=== PATIENT | male | born 1980 | race Caucasian/White ===

== ENCOUNTER → 2019-12-26 | Outpatient (CLI) | payer OTHER ==
--- NOTE | 2019-12-26 16:45 | Diagnostic Imaging Report ---
INDICATION: Bulge in the anterior abdominal wall. FINDINGS: Ultrasound of the area in question in the anterior abdominal wall was performed. No cystic or solid lesion is seen. There is no definitive hernia. IMPRESSION: Normal limited abdominal sonography in the area in question. Consider CT for more complete evaluation if clinically warranted. Dictated by: Dictated on workstation # [id number]
== END ==
LOC: RAD 16:07
PROVIDERS: ATTEND Nurse Practitioner Family
DX: R19.00 Intra-abdominal and pelvic swelling, mass and lump, unspecified site (principal)
CPT/HCPCS: 76705

== ENCOUNTER 2022-03-09 17:15 | Emergency (ER) | payer SELFPAY ==
[~2022-03-09] VITALS: Ht 177.8 cm; Wt 95.3 kg
[2022-03-09] MEDS ORDERED: cefTRIAXone 1 GM PRE-MIX 50 ML IV STA ×2 (17:34→18:14)
[2022-03-09] MEDS ORDERED: CYCLOBENZAPRINE 10 MG (FLEXERIL) TAB PO STA (17:36)
[2022-03-09] MEDS ORDERED: fentaNYL INJ 100 MCG/2 ML AMP IVP STA (17:37)
--- NOTE | 2022-03-09 17:38 | ED GU-Male ---
General Chief Complaint: - Reproductive Stated Complaint: LEFT TESTICLE PAIN - UTI Nursing Triage Note: PT AMBULATORY TO ROOM. PT SENT TO ER FROM URGENT CARE. PER UC REPORT PT RECEIVED 60MG TORADOL IM, ZOFRAN IV, 1000ML NS, AND TYLENOL FOR FEVER. PT REPORTS FEELING SICK TUESDAY, HAVING UTI SYMPTOMS TUESDAY, AND TOOK SOME ANTIBIOTICS THAT HE HAD AT HOME ON TUESDAY. PT STATES HE FELT PRETTY GOOD YESTERDAY, BUT NOTICED SOME LEFT TESTICLE SWELLING LAST NIGHT. PT REPORTS EXTREME PAIN IN LEFT TESTICLE TODAY AND FIRMNESS Source: patient Exam Limitations: no limitations History of Present Illness Date Seen by Provider: Mar 09, 2022 Time Seen by Provider: 17:38 Initial Comments Patient is a 41-year-old male who presents ED with pain with urination, left testicle or swelling and redness. Patient states he returned from a trip last Tuesday. States he spent most of the vacation drinking alcohol and having sexual intercourse with his significant other. Patient started having fever and urinary symptoms with burning urination and frequent urination. Patient states he did not feel well over the weekend. He took some leftover antibiotics which she cannot recall the name over the weekend and felt somewhat better on Tuesday. Started having pain to the left testicle last night woke up with worsening pain and redness throughout the day. States he is continue having pain with urination. Went to [facility] and had elevated white blood count with u rinary tract infection. Not concern for sexual transmitted infection. Reports worsening pain and swelling. Denies of any penile lesions, penile discharge, Peter pain, nausea, headache or dizziness. Patient did vomit 1 time while coming to the ER. Denies history of similar symptoms. Denies chest pain, cough, sore throat, headache, dizziness. patient in mild distress Allergies and Home Medications Allergies Coded Allergies: diphenhydramine (Verified Allergy, Unknown, 03/09/22) Patient Home Medication List Home Medication List Reviewed: Yes Hydrocodone/Acetaminophen (Hydrocodone-Acetamin 5-325 mg) 5 Mg-325 Mg Tablet, 1 TAB PO Q4H PRN for PAIN-MODERATE (5-7) Prescribed by: BC SINGLETON on 03/09/221922 Levofloxacin (Levofloxacin) 500 Mg Tablet, 500 MG PO DAILY Prescribed by: BC SINGLETON on 03/09/221922 Review of Systems Review of Systems Constitutional: No chills, No diaphoresis; malaise, weakness EENTM: No blurred vision, No double vision Respiratory: No cough, No dyspnea on exertion Cardiovascular: No chest pain Gastrointestinal: No abdominal pain, No diarrhea, No nausea Genitourinary: burning, frequency, hematuria, other (Left testicle or pain) Musculoskeletal: No back pain, No joint pain Skin: No change in color All Other Systemes Reviewed Negative Unless Noted: Yes Physical Exam Vital Signs Vital Signs - First Documented 03/09/22 17:22 Temp 36.6 Pulse 112 Resp 20 B/P (MAP) 150/84 (106) Pulse Ox 95 Capillary Refill : Height, Weight, BMI Height: '" Weight: lbs. oz. kg; 30.00 BMI Method: General Appearance: WD/WN, no apparent distress HEENT: PERRL/EOMI, normal ENT inspection, TMs normal, pharynx normal Neck: non-tender, full range of motion, supple, normal inspection Cardiovascular: regular rate, rhythm, no edema, no gallop, no JVD Respiratory: chest non-tender, lungs clear, normal breath sounds Gastrointestinal: normal bowel sounds, non tender, soft Genital/Rectal: tenderness (Left testicle or swelling in redness. Tenderness to palpate no inguinal lymphadenopathy. 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, no motor/sensory deficits, alert, normal mood/affect, oriented x 3 Skin: normal color, warm/dry Focused Exam Lactate Level 03/09/22 17:54: Lactic Acid Level 0.99 Lactic Acid Level Laboratory Tests Test 03/09/22 17:54 Lactic Acid Level 0.99 MMOL/L (0.50-2.00) Progress/Results/Core Measures Suspected Sepsis SIRS Temperature: Pulse: 112 Respiratory Rate: 20 Laboratory Tests 03/09/22 17:54: White Blood Count 20.3H Blood Pressure 150 /84 Mean: 106 03/09/22 17:54: Lactic Acid Level 0.99 Laboratory Tests 03/09/22 17:54: Creatinine 0.93, Platelet Count 310, Total Bilirubin 0.7 Results/Orders Lab Results Laboratory Tests Test 03/09/22 17:54 03/09/22 18:53 Range/Units White Blood Count 20.3 H 4.3-11.0 10^3/uL Red Blood Count 5.12 4.30-5.52 10^6/uL Hemoglobin 14.3 13.3-17.7 g/dL Hematocrit 44 40-54 % Mean Corpuscular Volume 85 80-99 fL Mean Corpuscular Hemoglobin 28 25-34 pg Mean Corpuscular Hemoglobin Concent 33 32-36 g/dL Red Cell Distribution Width 13.3 10.0-14.5 % Platelet Count 310 130-400 10^3/uL Mean Platelet Volume 9.8 9.0-12.2 fL Immature Granulocyte % (Auto) 1 % Neutrophils (%) (Auto) 83 H 42-75 % Lymphocytes (%) (Auto) 6 L 12-44 % Monocytes (%) (Auto) 9 0-12 % Eosinophils (%) (Auto) 2 0-10 % Basophils (%) (Auto) 0 0-10 % Neutrophils # (Auto) 16.9 H 1.8-7.8 10^3/uL Lymphocytes # (Auto) 1.1 1.0-4.0 10^3/uL Monocytes # (Auto) 1.8 H 0.0-1.0 10^3/uL Eosinophils # (Auto) 0.4 H 0.0-0.3 10^3/uL Basophils # (Auto) 0.1 0.0-0.1 10^3/uL Immature Granulocyte # (Auto) 0.1 0.0-0.1 10^3/uL Neutrophils % (Manual) 84 % Lymphocytes % (Manual) 8 % Monocytes % (Manual) 6 % Eosinophils % (Manual) 2 % Blood Morphology Comment NORMAL Sodium Level 134 L 135-145 MMOL/L Potassium Level 3.5 L 3.6-5.0 MMOL/L Chloride Level 99 98-107 MMOL/L Carbon Dioxide Level 23 21-32 MMOL/L Anion Gap 12 5-14 MMOL/L Blood Urea Nitrogen 14 7-18 MG/DL Creatinine 0.93 0.60-1.30 MG/DL Estimat Glomerular Filtration Rate 105 BUN/Creatinine Ratio 15 Glucose Level 99 70-105 MG/DL Lactic Acid Level 0.99 0.50-2.00 MMOL/L Calcium Level 8.5 8.5-10.1 MG/DL Corrected Calcium 8.6 8.5-10.1 MG/DL Total Bilirubin 0.7 0.1-1.0 MG/DL Aspartate Amino Transf (AST/SGOT) 15 5-34 U/L Alanine Aminotransferase (ALT/SGPT) 25 0-55 U/L Alkaline Phosphatase 49 40-136 U/L C-Reactive Protein High Sensitivity 8.30 H 0.00-0.50 MG/DL Total Protein 6.8 6.4-8.2 GM/DL Albumin 3.9 3.2-4.5 GM/DL Urine Color YELLOW Urine Clarity CLEAR Urine pH 6.0 5-9 Urine Specific Stickney 1.015 L 1.016-1.022 Urine Protein 1+ H NEGATIVE Urine Glucose (UA) NEGATIVE NEGATIVE Urine Ketones 2+ H NEGATIVE Urine Nitrite NEGATIVE NEGATIVE Urine Bilirubin NEGATIVE NEGATIVE Urine Urobilinogen 1.0 < = 1.0 MG/DL Urine Leukocyte Esterase 2+ H NEGATIVE Urine RBC (Auto) 3+ H NEGATIVE Urine RBC 2-5 H /HPF Urine WBC 25-50 H /HPF Urine Squamous Epithelial Cells NONE /HPF Urine Renal Epithelial Cells NONE /HPF Urine Crystals NONE /LPF Urine Bacteria NEGATIVE /HPF Urine Casts NONE /LPF Urine Mucus NEGATIVE /LPF Urine Culture Indicated NO My Orders Orders - RAVINDRA POSADA Urinalysis (03/09/22 17:23) Us Scrotum (Testicle) [id number] (03/09/22 17:23) Cbc With Automated Diff (03/09/22 17:34) Comprehensive Metabolic Panel (03/09/22 17:34) Hs C Reactive Protein (03/09/22 17:34) Blood Culture (03/09/22 17:34) Lactic Acid Analyzer (03/09/22 17:34) Ceftriaxone 1 Gm Pre-Mix (Rocephin 1 Gm (03/09/22 17:34) Cyclobenzaprine Tablet (Flexeril Tablet) (03/09/22 17:36) Fentanyl Inj (Sublimaze Injection) (03/09/22 17:37) Neis Colten Dna Urine Test (03/09/22 17:39) Chlamydia Trachomatis Urine (03/09/22 17:39) Manual Differential (03/09/22 17:54) Blood Culture (03/09/22 18:09) Ceftriaxone 1 Gm Pre-Mix (Rocephin 1 Gm (03/09/22 18:14) Ns Iv 1000 Ml (Sodium Chloride 0.9%) (03/09/22 18:22) Rx-Hydrocodone/Apap 5-325 Mg (Rx-Vicodin (03/09/22 19:45) Medications Given in ED Current Medications Medications Dose Ordered Sig/Julio C Route Start Time Stop Time Status Last Admin Dose Admin Acetaminophen/ Hydrocodone Bitart 1 ea ONCE ONCE PO 03/09/22 19:45 03/09/22 19:46 DC 03/09/22 19:49 1 EA Vital Signs/I&O 03/09/22 17:22 Temp 36.6 Pulse 112 Resp 20 B/P (MAP) 150/84 (106) Pulse Ox 95 Capillary Refill : Blood Pressure Mean: 106 Departure Communication (PCP) Ultrasound shows epididymitis and orchitis noted to the left scrotum. Elevated white blood count was tachycardic. Was given a dose of Rocephin. Urinalysis positive for UTI. Not concern for sexual transmitted infections and currently sexually active with 1 partner. Concerning for more enteric however cultures are currently pending. Patient was given dose of IV pain medication. Ultrasound was negative for testicle or torsion, abscess. Patient Was given a liter of fluid. Pain improved. Will discharge with Levaquin 500 mg daily for 10 days for the epididymitis. Discussed taking probiotics. Will discharge with pain medication. recommend recheck with his primary care physician in 2 to 3 days for reevaluation. If any worsening symptoms return back to ED for further evaluation Impression Primary Impression: Epididymitis Additional Impression: Orchitis Disposition: 01 HOME, SELF-CARE Condition: Stable Departure-Patient Inst. Decision time for Depature: 19:21 Referrals: [facility]/JUAN GABRIEL MD Patient Instructions: Epididymitis (DC) Scripts Hydrocodone/Acetaminophen (Hydrocodone-Acetamin 5-325 mg) 5 Mg-325 Mg Tablet 1 TAB PO Q4H PRN for PAIN-MODERATE (5-7), #8 TAB Prov: RAVINDRA POSADA 03/09/22 Levofloxacin (Levofloxacin) 500 Mg Tablet 500 MG PO DAILY for 10 Days, #10 TAB Prov: RAVINDRA POSADA 03/09/22 Work/School Note: Work Release Form Date Seen in the Emergency Department: Mar 09, 2022 Return to Work: Mar 12, 2022 RAVINDRA POSADA Mar 09, 2022 17:38
[2022-03-09 18:04] LABS: BASOPHILS # (AUTO) 0.1 10^3/uL (0.0-0.1); BASOPHILS % (AUTO) 0 % (0-10); EOSINOPHILS # (AUTO) 0.4 10^3/uL (0.0-0.3); EOSINOPHILS % (AUTO) 2 % (0-10); HEMATOCRIT 44 % (40-54); HEMOGLOBIN 14.3 g/dL (13.3-17.7); LYMPHOCYTES # (AUTO) 1.1 10^3/uL (1.0-4.0); LYMPHOCYTES % (AUTO) 6 % (12-44); MEAN CORPUSCULAR HEMOGLOBIN 28 pg (25-34); MEAN CORPUSCULAR HGB CONC 33 g/dL (32-36); MEAN CORPUSCULAR VOLUME 85 fL (80-99); MEAN PLATELET VOLUME 9.8 fL (9.0-12.2); MONOCYTES # (AUTO) 1.8 10^3/uL (0.0-1.0); MONOCYTES % (AUTO) 9 % (0-12); NEUTROPHILS # (AUTO) 16.9 10^3/uL (1.8-7.8); NEUTROPHILS % (AUTO) 83 % (42-75); PLATELET COUNT 310 10^3/uL (130-400); WHITE BLOOD COUNT 20.3 10^3/uL (4.3-11.0)
[2022-03-09 18:12] LABS: ALBUMIN 3.9 GM/DL (3.2-4.5); POTASSIUM 3.5 MMOL/L (3.6-5.0)
[2022-03-09 18:13] LABS: CALCIUM 8.5 MG/DL (8.5-10.1)
[2022-03-09 18:15] LABS: TOTAL PROTEIN 6.8 GM/DL (6.4-8.2)
[2022-03-09 18:16] LABS: BILIRUBIN,TOTAL 0.7 MG/DL (0.1-1.0)
[2022-03-09 18:18] LABS: CREATININE SERUM 0.93 MG/DL (0.60-1.30)
[2022-03-09] MEDS ORDERED: NS IV 1000 ML 1,000 ML IV STA (18:22)
[2022-03-09 18:27] LABS: EOSINOPHILS % (MANUAL) 2 %; LYMPHOCYTES % (MANUAL) 8 %; MONOCYTES % (MANUAL) 6 %; NEUTROPHILS % (MANUAL) 84 %; RBC MORPH NORMAL
[2022-03-09 18:57] LABS: BILIRUBIN,URINE NEGATIVE (NEGATIVE); CLARITY,URINE CLEAR; COLOR,URINE YELLOW; GLUCOSE, URINE (UA) NEGATIVE (NEGATIVE); KETONES,URINE 2+ (NEGATIVE); LEUKOCYTE ESTERASE ,URINE 2+ (NEGATIVE); NITRITE,URINE NEGATIVE (NEGATIVE); PROTEIN,URINE 1+ (NEGATIVE)
[2022-03-09 19:06] LABS: BACTERIA,URINE NEGATIVE /HPF; WBC,URINE 25-50 /HPF
--- NOTE | 2022-03-09 19:14 | Diagnostic Imaging Report ---
PROCEDURE: US Scrotum. TECHNIQUE: Multiple real-time grayscale images were obtained over the scrotum in various projections bilaterally. INDICATION: Left testicular pain for 5 days. Right testicle measures 4.3 x 2.1 x 3.0 cm and the left testicle measures 4.5 x 2.0 x 3.0 cm. There is no evidence of right or left testicular mass. Both testicles show blood flow. There is some slight increased vascularity in the left testicle compared to the right but no abnormal morphology. The right epididymis is unremarkable. Left epididymis does appear to be thickened and hypervascular consistent with epididymitis. There is a small left hydrocele. No right-sided hydrocele is seen. There is no varicocele. IMPRESSION: 1. Findings consistent with left-sided epididymitis. There is also asymmetric slightly increased blood flow to the left testicle which may be owing to orchitis as well. The study is otherwise unremarkable. Dictated by: Dictated on workstation # [id number]
[2022-03-09] MEDS ORDERED: LEVO500T81 PO (19:23)
[2022-03-09] MEDS ORDERED: ACHD5005 PO (19:23)
[2022-03-09 19:50] VITALS: BP 137/84
== END 2022-03-09 19:52 | disposition home or self-care (01) ==
LOC: EDUNIT# 17:15 → ER 17:17
DX: N45.3 Epididymo-orchitis (principal); N39.0 Urinary tract infection, site not specified; D72.829 Elevated white blood cell count, unspecified; Z28.310 Unvaccinated for COVID-19
CPT/HCPCS: 36415; 76870; 80053; 81000; 83605; 85007; 85027; 86141; 87040; 87088; 87491; 87591